=== PATIENT | female | born 1965 | race Caucasian/White ===

== ENCOUNTER → 2019-01-30 | Outpatient (CLI) | payer OTHER, SELFPAY ==
[2019-02-03 13:01] LABS: HPV Reflexed? NOT INDICATED
== END | disposition home or self-care (01) ==
LOC: LABSPEC 14:17
PROVIDERS: Visit Provider Obstetrics & Gynecology
DX: Z12.4 Encounter for screening for malignant neoplasm of cervix (principal)
CPT/HCPCS: 87624; 88175; G0145

== ENCOUNTER → 2020-01-16 06:09 | Outpatient (CLI) | payer OTHER, SELFPAY ==
[2020-01-16 07:56] LABS: Cholesterol 164 mg/dL (200); Glucose 87 mg/dL (74-106); High Density Lipoprotein 82 mg/dL; Triglycerides 75 mg/dL; Very Low Density Lipoprotein 15 mg/dL (5-40)
== END ==
PROVIDERS: PCP Internal Medicine; Referring Provider Internal Medicine; Visit Provider Internal Medicine
DX: Z00.00 Encounter for general adult medical examination without abnormal findings (principal); I10 Essential (primary) hypertension
CPT/HCPCS: 36415; 80061; 82947

== ENCOUNTER → 2020-11-19 15:40 | Outpatient (CLI) | payer OTHER, SELFPAY | PROVIDERS: PCP Internal Medicine; Visit Provider Obstetrics & Gynecology | DX: Z12.4 Encounter for screening for malignant neoplasm of cervix (principal) | CPT/HCPCS: 88175; G0145 ==

== ENCOUNTER → 2020-11-25 15:19 | Outpatient (CLI) | payer OTHER, SELFPAY ==
--- NOTE | 2020-11-25 15:25 | BI_ITS ---
MAMMOGRAPHY - BILATERAL SCREENING REASON FOR EXAM: Female, 55 years old. Routine annual screening examination. PERTINENT HISTORY: Non-contributory. TECHNIQUE: Digital bilateral breast tony (3D mammographic acquisition) in the CC and MLO projections. 2-D mediolateral oblique (MLO) and craniocaudad (CC) views of both breasts were obtained. CAD: Full Field Digital Mammography with Computer Added Detection was performed. COMPARISON: Comparison is made with prior study dated 02/18/2014. FINDINGS: Breast Composition: The breasts are heterogeneously dense, which may obscure small masses. There is a 1.3 cm x 1 cm nodular density in the superior retroareolar region of the right breast. Correlation with ultrasound is recommended. There is enlargement of the right axillary lymph nodes. No other significant abnormalities are identified. BI/SCRN MAMM (CAD)W/TONY BILAT IMPRESSION: 1.3 cm x 1 cm nodular density in the superior retroareolar region of the right breast. Correlation with ultrasound is recommended. There is enlargement of the right axillary lymph nodes as well. ASSESSMENT CATEGORY: BIRADS Category 0: Incomplete. Need additional imaging evaluation. A letter regarding these results will be sent to the patient by the facility within 30 days. Approximately 10% of breast cancers are not detected by mammography. A normal mammogram should not delay biopsy of a clinically suspicious abnormality. [id number] Electronically Signed: Quang Barker MD at 8:19 EDT , Service support ,
== END ==
PROVIDERS: PCP Internal Medicine; Referring Provider Obstetrics & Gynecology; Visit Provider Obstetrics & Gynecology
DX: Z12.31 Encounter for screening mammogram for malignant neoplasm of breast (principal)
CPT/HCPCS: 77063; 77067

== ENCOUNTER → 2020-11-27 07:47 | Outpatient (CLI) | payer OTHER, SELFPAY ==
--- NOTE | 2020-11-27 07:51 | US_ITS ---
STUDY: ULTRASOUND BREAST - RIGHT REASON FOR EXAM: Female, 55 years old. Abnormal screening mammogram. TECHNIQUE: Axial and longitudinal images of the RIGHT breast were performed with a high resolution ultrasound transducer. # OF IMAGES: 41 COMPARISON: Comparison is made with prior mammogram dated 11/25/2020. FINDINGS: RIGHT Breast: There is a 1 cm x 1 cm x 1 cm irregular shaped hypoechoic solid nodule at the 11 o''clock position of the breast at 2 cm from nipple. There is minimal posterior acoustical shadowing. A biopsy is recommended. Several enlarged lymph nodes are seen in the right axilla. The largest measures 1.6 cm x 2 cm x 1.4 cm. Biopsy recommended. US/Breast Limited Unilateral IMPRESSION: Enlarged lymph nodes. 1 cm x 1 cm x 1 cm hypoechoic irregular nodule at the 11 o''clock position of the breast 2 cm from nipple. A biopsy is recommended. ASSESSMENT CATEGORY: BIRADS Category 4: Suspicious - Biopsy Should Be Considered. A letter regarding these results will be sent to the patient by the facility within 30 days. Electronically Signed: Quang Barker MD at 8:43 EDT , Service support ,
== END ==
PROVIDERS: PCP Internal Medicine; Visit Provider Obstetrics & Gynecology
DX: N63.10 Unspecified lump in the right breast, unspecified quadrant (principal)
CPT/HCPCS: 76642

== ENCOUNTER → 2020-12-01 | Outpatient (CLI) | payer OTHER, SELFPAY ==
--- NOTE | 2020-12-01 | IMM_PTH ---
PATIENT: OLEG BAILON LOC: [facility] U#:[id number] AGE/SX: 55/F ROOM: RE12/01/[address]: Dr. Aleks Page MD : 1965 BED: DIS: 12/01/2020 SPEC #: [id number] RECD: 12/03/20 13:22 STATUS: JOSEPH REQ #: [id number] POLO: 12/01/20 00:[address]: Aleks Page DEPT: IMMUNOHISTOCHEMISTRY RECD BY: Ariana Craft ENTERED: 12/03/20 13:25 SP TYPE: IMMUNO OTHR DR: Dr. Osbaldo Newton MD Tissues: A - Right breast, NOS B - Axillary lymph node, NOS Procedures: CALPONIN-1 (add) CD31 (add) CK5-6 (add) CK8 (add) SONG-2 (add) E-CAD (add) HER2 VICENTE (add) KI-67 (add) MAMM (add) P53 (add) ID (add) FACTOR VIII (add) Pankeratin (add) GATA3 (add) P40 (add) ER (initial) PHYSICIAN & [place] [phone] SPECIMEN INFORMATION: Tissue Source: A ? Right breast, B ? Right axillary lymph node Clinical Info: Right breast mass, enlarged lymph node right axilla Specimen Number: [id number] A & B CPT code: 91250 x2, 26294 x11, 34319 x5 METHODOLOGY: Deparaffinized sections of prefer/formalin-fixed tissue or PAP/DQ stained slides are incubated with monoclonal/polyclonal antibodies/oligonucleotide probes. Localization is made via biotin free immunoperoxidase method. Appropriate controls are performed and reacted as expected. Results on target cell population are indicated in the following table: RESULTS: ANTIBODY / CLONE RESULT Block A P53 (DO-7) positive, 5% Ki-67 (30-9) positive, 40% CK8 (31zsofA26) positive CK5-6 (D5 & 1684) negative Calponin-1 (OG664V) negative P40 (BC28) negative E-Cad (ECH-6) positive SONG-2 (SP21) positive CD31 (ISAEL/70A) positive Factor VIII (R Ag) positive MORPHOMETRIC ANALYSIS ER (clone 6F11) negative ID (clone 16/1E2) negative Her-2Neu (clone CB11) positive (3+) Block B GATA3 (L50-823) positive Mammaglobin (31A5) negative AE1-3 (AE1/AE3/PCK26) positive ER (6F11) negative ID (1E2) negative The prognostic test for HER2 is performed on formalin-fixed paraffin embedded tissue. A 3+ (positive) staining pattern is defined as intense, homogeneous, complete, circumferential membranous staining in >10% of contiguous tumor cells. A similar weak (2+) staining pattern is interpreted as equivocal. DEBORAH follow-up testing is recommended for all equivocal cases. Positivity/negativity for ER/ID is reported if > or < 1% of the tumor cells are immuno- reactive, respectively. The ASCO/CAP criteria is used for scoring. Reference: Journal of Clinical Oncology, 2013; 31:9130-5113 & 2010; 16:4850-5602. Duration of fixation: 31.5 Hrs; Sample Adequate: Yes. These assays have not been validated on decalcified tissues. Results should be interpreted with caution given the likelihood of false negativity on decalcified specimens. These tests were developed and their performance characteristics determined by [facility]. They may not have been cleared or approved by the U.S. Food and Drug Administration. The FDA has determined that such clearance or approval is not necessary. The above immunohistochemical/dualISH markers are ordered and reviewed by the Pathologist. INTERPRETATION: A.Right breast, biopsy: Invasive ductal carcinoma, nuclear grade 2. Focal vascular invasion is present. B. Right axillary lymph node, biopsy: Metastatic carcinoma consistent with breast primary. AM:osmar 12/07/2020
[2020-12-01 14:43] VITALS: BMI 29.1
--- NOTE | 2020-12-01 14:55 | BRBX_PTH ---
PATIENT: OLEG BAILON LOC: [facility] U#:[id number] AGE/SX: 55/F ROOM: RE12/01/[address]: Dr. Aleks Page MD : 1965 BED: DIS: 12/01/2020 SPEC #: [id number] RECD: 12/01/20 16:14 STATUS: JOSEPH RE #: [id number] POLO: 12/01/20 14:[address]: Aleks Page DEPT: SURGICAL PATHOLOGY RECD BY: Lorenza Suazo ENTERED: 12/02/20 08:36 SP TYPE: BREAST BX OTHR DR: Dr. Osbaldo Newton MD Tissues: A - Breast, NOS B - LYMPH NODE BIOPSY Procedures: Surgery Specimen Level IV HEADER OPERATION: Right breast and axillary biopsy PRE-OP DIAGNOSIS: Right breast mass, enlarged lymph node right axilla TISSUE SUBMITTED: A - Right breast tissue, B - Right axillary lymph node FIXATION TIME: 31.5 hours MICROSCOPIC DIAGNOSIS A. Right breast, core biopsy: Invasive ductal carcinoma with the following characteristics: Maximal length - 7.5 millimeters Nuclear grade - 2/3 See comment. B. Right axillary lymph node, core biopsy: Metastatic carcinoma consistent with breast primary. See comment. AM:osmar 12/03/2020 COMMENT A. Immunohistochemistry ([id number]) supports the above diagnosis. Focal lymphatic invasion by carcinoma is present. B. Immunohistochemistry ([id number]) supports the above diagnosis. Case has been reviewed in consultation with Dr. Marie who concurs with the above diagnosis. IDC:SJ MICROSCOPIC DESCRIPTION Slides are reviewed. GROSS DESCRIPTION A - Received in fixative is one container labeled with the patient's name and designated right breast. The specimen consists of multiple elongated fragments of mejias-yellow fibroadipose tissue that in aggregate measure 1 x 0.6 x 0.2 cm. The entire specimen is submitted in one cassette. B - Received in fixative is one container labeled with the patient's name and designated right axilla. The specimen consists of multiple elongated fragments of mejias-yellow fibroadipose tissue that in aggregate measure 1.5 x 0.5 x 0.1 cm. The entire specimen is submitted in one cassette. / SJ:rg 12/02/20 TC:0 CPT: 64544 x2 ADDENDUM ADDENDUM ADDENDUM ADDENDUM 12/07/2020 12:37 ADDENDUM 06/02/2021 09:28 ADDENDUM 12/07/2020 12:37 ADDENDUM 12/07/2020 12:37 ADDENDUM 12/07/2020 12:37 ADDENDUM 12/07/2020 12:37 A. Focal vascular invasion is present. This addendum is added to incorporate an outside pathology consultation report. The case was examined at [facility] (#[id number]) and the following diagnosis was rendered. A. Right breast, core biopsy: Invasive ductal carcinoma, provisional [place] grade 2. B. Right axillary lymph node, core biopsy: Cores of lymph node tissue with metastatic carcinoma consistent with breast primary. Please see complete above mentioned consultation report in EMR
== END | disposition home or self-care (01) ==
LOC: LABSPEC 16:19
PROVIDERS: PCP Internal Medicine; Referring Provider Surgery; Visit Provider Surgery
DX: C50.911 Malignant neoplasm of unspecified site of right female breast (principal); C77.3 Secondary and unspecified malignant neoplasm of axilla and upper limb lymph nodes
CPT/HCPCS: 88305; 88341; 88342

== ENCOUNTER → 2020-12-11 12:51 | Outpatient (CLI) | payer OTHER, SELFPAY ==
[2020-12-08 15:33] VITALS: BMI 29.5
--- NOTE | 2020-12-11 12:56 | ECHODONC_ITS ---
Reason For Study: Other, Breast CA baseline echo Procedure This was a 2D Doppler, Color Flow transthoracic echocardiogram. Myocardial strain analysis was performed in this exam to aid in the assessment of cardiac function. Exam performed in department. Left Ventricle Normal LV size. Left ventricular systolic function is normal. The estimated ejection fraction is 65 %. The global longitudinal strain = -20 % (normal). Transmitral doppler flow suggestive of impaired relaxation of left ventricle. No regional wall motion abnormalities noted. Right Ventricle Normal RV size. Normal systolic function. Atria The left atrium is mildly enlarged. Normal right atrium. No doppler evidence for ASD. Bubble contrast study negative for right to left interatrial shunt. Mitral Valve There is no mitral annular calcification. Normal mitral valve. Mild (1+) mitral valve insufficiency. Tricuspid Valve Normal tricuspid valve. Mild tricuspid valve insufficiency. Right ventricular systolic pressure estimated to be 33 mmHg. Aortic Valve Trisinus/trileaflet aortic valve. Mild diffuse aortic valve thickening. Trivial aortic valve insufficiency. Pulmonic Valve The pulmonic valve is not well visualized. Trivial pulmonic valve insufficiency. Great Vessels Normal sized aortic root. Pericardium/Pleural No pericardial effusion. MMode/2D Measurements & Calculations LVIDd: 4.8 cm IVSd: 1.1 cm Ao root diam: 3.1 cm LVIDs: 3.1 cm LVPWd: 0.67 cm RVDd: 3.2 cm FS: 36.1 % LAV(MOD-bp): 62.5 ml LVAd ap4: 30.9 cm2 SV(MOD-sp4): 66.1 ml LAV(MOD-bp) Indexed: 33.0 ml/m2 LVLd ap4: 8.1 cm LAV(MOD-sp2): 70.2 ml EDV(MOD-sp4): 96.8 ml LAV(MOD-sp4): 54.4 ml EDV(sp4-el): 100.0 ml LVAs ap4: 15.5 cm2 LVLs ap4: 6.6 cm ESV(MOD-sp4): 30.7 ml ESV(sp4-el): 30.9 ml EF(MOD-sp4): 68.3 % EF(sp4-el): 69.1 % SV(sp4-el): 69.1 ml LA A4 area: 19.3 cm2 LA dimension(2D): 3.9 cm RA A4 area: 15.6 cm2 Doppler Measurements & Calculations MV E max bipin: 55.0 cm/sec Lat Peak E' Bipin: 7.1 cm/sec Med Peak E' Bipin: 5.4 cm/sec MV A max bipin: 81.4 cm/sec E/E' lat: 7.7 E/E' med: 10.3 MV E/A: 0.68 Ao V2 max: 143.7 cm/sec LV V1 max: 118.2 cm/sec PA V2 max: 74.2 cm/sec Ao max P.3 mmHg LV V1 max P.6 mmHg Ao V2 mean: 102.9 cm/sec Ao mean P.6 mmHg Ao V2 VTI: 31.8 cm TR max bipin: 272.3 cm/sec TR max P.7 mmHg ECHO/ONC Echo Complete Interpretation Summary Left ventricular systolic function is normal. The estimated ejection fraction is 65 %. The global longitudinal strain = -20 % (normal). The left atrium is mildly enlarged. Mild (1+) mitral valve insufficiency. Mild tricuspid valve insufficiency. Mild diffuse aortic valve thickening. Trivial aortic valve insufficiency. Trivial pulmonic valve insufficiency. Right ventricular systolic pressure estimated to be 33 mmHg. Transmitral doppler flow suggestive of impaired relaxation of left ventricle Bubble contrast study negative for right to left interatrial shunt. Ordering Physician: Katelin Hager Referring Physician: Osbaldo Newton Performed By: Ritika Blackwell RDCS, RVT
== END ==
PROVIDERS: PCP Internal Medicine; Referring Provider Internal Medicine Hematology & Oncology; Visit Provider Internal Medicine Hematology & Oncology
DX: Z01.818 Encounter for other preprocedural examination (principal); C50.411 Malignant neoplasm of upper-outer quadrant of right female breast; C77.9 Secondary and unspecified malignant neoplasm of lymph node, unspecified
CPT/HCPCS: 93306; 93356; A4216

== ENCOUNTER 2020-12-18 10:37 | Day surgery (SDC) | payer OTHER, SELFPAY ==
[2020-12-08 15:33] VITALS: BMI 29.5
[2020-12-18] VITALS (9 sets, daily range): BP systolic 130–154; BP diastolic 77–96; PULSE 54–78; RESP 16–18; TEMP 36.1–36.6; O2SAT 96–100; BMI 29.3
--- NOTE | 2020-12-18 07:34 | HP_ITS ---
Intake Vital Signs 12/01/20 Height 5 ft 5 in 12/01/20 Weight: 175 lb 12/01/20 BMI 29.1 12/01/20 BP 157/100 H 12/01/20 Blood Pressure Location Lt brachial 12/01/20 Position Sitting 12/01/20 Respiration 18 Intake Visit Reasons: BIRADS 4 RIGHT BREAST Chief Complaint: right breast and right axilla mass Dental Resident Required: No Is patient in pain?: No Allergies rizatriptan [From Maxalt] Allergy (Mild, Verified 12/01/20 14:44) PT UNSURE OF REACTION Medications doxazosin 2 mg tablet 2 mg PO DAILY 12/01/20 [History Confirmed 12/01/20] metoprolol succinate 50 mg tablet,extended release 24 hr 50 mg PO DAILY 12/01/20 [History Confirmed 12/01/20] PFSH Medical History (Updated 12/01/20 @ 14:42 by Candi Barclay) HTN (hypertension) (Chronic) Surgical History (Updated 12/01/20 @ 14:42 by Candi Barclay) S/P tube myringotomy (Acute) Status post hernia repair (Acute) Family History (Updated 12/01/20 @ 14:43 by Candi Barclay) Father Colon cancer Asthma Mother CAD (coronary artery disease) Hypertension Social History (Updated 12/01/20 @ 15:[address] Aleks Page MD) Smoking Status: Former smoker alcohol intake: current alcohol intake frequency: a few times a month HPI HPI HPI: OLEG BAILON, is a 55 F who presents to the office today for HPI HPI HPI: OLEG BAILON, is a 55 F who presents to the office today for right breast mass. The patient notes that she noted in the right axillary mass about 2 to 3 weeks ago when adjusting her bra. She then noticed a red area on her medial right breast and a lump in the superior right breast. Her last mammogram was in 2013. She had a mammogram and ultrasound which showed a BI-RADS lesion in the right breast as well as right axillary lymphadenopathy. Patient does not report any history of breast cancer in the family. She has not had any breast biopsies or breast cancer in her past. ROS General General: No weight change or fatigue Breast Breast: Yes right breast lump, abnormal mammogram and abnormal US; no nipple discharge or breast pain Musc Musculoskeletal: Yes back problems and arthritis Cardio Cardiovascular: No murmur, pacemaker, heart disease, atrial fibrillation, high blood pressure, heart attack, heart stent, palpitations, shortness of breat with exertion or chest pain Psych Psychiatric: Yes anxiety; no depression Resp Respiratory: No shortness of breath, No sleep apnea, No cough, No COPD, No asthma, No emphysema, No wheezing Gastro Gastrointestinal: No abdominal pain, No nausea or vomiting, No diarrhea, No constipation, No blood in stool, No acid reflux, No hemorrhoids, No ulcers, No gallbladder problem, No black,tarry stools Bipin Hematologic: No blood thinners Exam Const General: cooperative Orientation: alert, oriented x3 Chest Breast inspection: normal inspection of the breasts Breast Palpation: Yes axillary lymphadenopathy, Yes breast mass lrb: Right, No nipple discharge Resp Effort & Inspection: normal respiratory effort Auscultation: clear to auscultation bilaterally Cardio Rate: regular rate Rhythm: regular rhythm Heart Sounds: no murmurs GI Inspection: non-distended Palpation: soft, nontender Office Procedures Biopsy Provider Documentation The patient's right breast and axilla were prepped and draped in usual sterile fashion. Ultrasound was used to localize the enlarged right axillary lymph nodes as well as the right breast mass. A small area in the right axilla was injected with local anesthetic and a amara was made with a scalpel. Under ultrasound guidance several biopsies were performed of the largest right axillary lymph node. A clip was placed into the largest right axillary lymph node. Next an area of the lateral right breast was injected with local anesthetic and a small amara was made with a scalpel. Under ultrasound guidance several biopsies of the right breast mass were performed and a clip was placed into the right breast mass. Next both incisions were closed with Steri-Strips and bandages. Patient tolerated the procedure well. Alert Zeke Yes Biopsy Breast Biopsy: 50256 US Guidance Lymphnode Biopsy: [id number] Lymphnode Procedure Time Out Time Out Informed consent given: Yes Consent signed: Yes Time out checklist: patient, procedure, site marked/identified, positioning of patient, supplies available, allergies confirmed, team agrees on procedure Time out staff in room: Yes Time out verified: Yes Time out date: 12/01/20 Time out time: 15:22 Assessment & Plan Problems 1. Breast mass, right N63.10 2. Axillary lymphadenopathy R59.0 Plan The patient has a worrisome breast mass in the right breast with right axillary lymphadenopathy. After discussing the risks of bleeding and infection and obtaining informed consent the right breast mass and largest right axillary lymph node were both biopsied and clips were placed in each. Patient tolerated the procedure well and I will call her with results and discuss surgery after pathology results. Aleks Page MD Pager: [address], [address] [phone] Office: Orders Orders: Biopsy Today N63.10, R59.0 Coding Level of Care Code Attention Zeke Diagnoses Breast mass, right N63.10 Axillary lymphadenopathy R59.0 Additional Codes Biopsy - Breast Biopsy: 42387 US Guidance (89059) Biopsy - Lymphnode Biopsy: 53718 Lymphnode (04241) Since the patient's last visit the pathology did return as breast cancer of both the breast and the right axilla. I discussed this with her and with the oncologist and they are planning treatment with systemic therapy. I discussed port placement with the patient in detail. I discussed the risks including but not limited to bleeding, infection, pneumothorax, DVT or line infection. The patient understands the risks and I will place a left chest port today. Aleks Page MD Pager: [address], [address] [place] [phone] Office:
[2020-12-18] MEDS: Lactated Ringers 1,000 ML 100 ML IV (11:15)
[2020-12-18] MEDS: Cefazolin 2 GM in 0.9% Normal Saline 100 ML IV (12:25)
[2020-12-18] MEDS: Bupiv/Epi 0.25% 30 ML Vial (12:30)
--- NOTE | 2020-12-18 13:04 | OP.PCM_ITS ---
Problem List (1) Encounter for adjustment and management of vascular access device Status: Resolved Report of Operation Date of Procedure: 12/18/20 Pre-Operative Diagnosis: Right breast cancer need for vascular access for chemotherapy Post-Operative Diagnosis: Same Surgery/Procedure Performed:: Ultrasound fluoroscopy guided left chest port placement utilizing left IJ Description of Procedure: After obtaining informed consent patient was brought back to the operating room MAC anesthesia was induced and the left chest and neck were prepped in normal sterile fashion. Ultrasound was used to evaluate both IJs and the left IJ was selected. Next, using a needle, the left IJ was accessed and a guidewire was passed on into the superior vena cava under fluoroscopy guidance. A small inc ision was made over the puncture site and the dilator introducer was placed over the guidewire. Next this was capped and the pocket was made for the port. 1% lidocaine with epinephrine was injected in the proposed port site. An incision was made with scalpel. Electrocautery was used to make a pocket under the skin and subcutaneous tissue. Hemostasis was obtained. Next, the catheter was tunne led up to the neck incision site and placed through the introducer. The peel- away introducer was removed and the position of the catheter was confirmed on fluoroscopy. Next, the catheter was trimmed and attached to the port with the locking device. Interrupted 2-0 Vicryl sutures were used to anchor the port to the chest wall and then the port was placed inside the pocket. The pocket was then flushed with saline and the port irrigated with saline. There was good blood return and the port flushed easily. Next, heparin was injected into the port. The skin was closed with subcutaneous interrupted 3-0 Vicryl sutures. A single 3-0 Vicryl sutures placed under the skin at the neck incision site. Steri-Strips were placed as well as op sites. Patient tolerated procedure well, was taken to PACU in stable condition. Chest x-ray will be obtained. Grafts/Implants Used: 8 [place] [employer]Port - Admit VTE Documentation VTE Mechan Device Prophylaxis: SCD's
--- NOTE | 2020-12-18 13:06 | DCINST_ITS ---
Discharge Diet: No Restrictions - Pain medication may cause nausea. You should typically eat light foods as you take your pain medication. Discharge Activity: Return to Normal Activity, May Shower - with your bandage in place in 1-2 days after surgery. DO NOT SHOWER WHEN YOUR PORT IS ACCESSED. Call your doctor if your incision/area has: Continuous Slow Oozing, Sudden Increased Bleeding, Increased Pain/ Swelling, Increased Redness Call your doctor if you observe: Fever of 101 or Higher Remove Dressing in (days):: 3 - When you remove the bandage, leave the steri- strips intact until they fall off. Allergies/Adverse Reactions: Allergies rizatriptan [From Maxalt] Adverse Reaction (Mild, Verified 12/18/20 10:54) Rash ITCHY MUSCLE CRAMPS Medications to take at Discharge doxazosin 2 mg tablet 2 mg PO DAILY 12/01/20 metoprolol succinate 50 mg tablet,extended release 24 hr 50 mg PO DAILY 12/01/20 Lorazepam [Ativan] 0.5 mg PO DAILY PRN PRN 12/08/20 Calcium (Elemental) [Os-Jaciel 500] 500 mg PO DAILY@0800 12/14/20 Naproxen Sodium [Aleve] 220 mg PO DAILY 12/14/20 Primary Care Physician: Osbaldo Newton MD [Primary Care Provider] - Test Results: Test results from this visit will be discussed in further detail at your follow- up appointment, if applicable. Please Follow Up With: Aleks Page MD When: Follow-up after treatment for discussion of surgical options.
--- NOTE | 2020-12-18 13:10 | RAD_ITS ---
STUDY: X-RAY CHEST REASON FOR EXAM: Female, 55 years old. pacu -- in pacu TECHNIQUE: Port placement. COMPARISON: None. FINDINGS: A left-sided portacatheter has been placed. The tip is at the junction of the superior vena cava and ready. The lungs are clear and expanded. There is no demonstrated pleural abnormality. Normal size heart. Normal mediastinum and van. Normal visualized pulmonary arteries. There is atherosclerotic tortuosity of the aortic arch and descending thoracic aorta. Normal visualized thoracic spine. Normal visualized ribs, clavicles, and shoulders. There is no demonstrated abnormality of the visualized soft tissue structures of the upper abdomen. RAD/CXR for Line Placement IMPRESSION: Status post left portacatheter placement with the tip at the junction of the superior vena cava and right atrium. Electronically Signed: Quang Barker MD at 13:25 EDT , Service support ,
[2020-12-18] MEDS: Ibuprofen 200 MG Tablet 600 MG PO (14:03)
== END 2020-12-18 14:45 | disposition home or self-care (01) ==
LOC: SDC 10:37 → AC 10:48
PROVIDERS: PCP Internal Medicine; Referring Provider Surgery; Visit Provider Surgery
PROC: (CPT 36561; principal; 2020-12-18 11:45)
DX: Z45.2 Encounter for adjustment and management of vascular access device (principal); C50.911 Malignant neoplasm of unspecified site of right female breast; I10 Essential (primary) hypertension; F41.9 Anxiety disorder, unspecified; Z78.0 Asymptomatic menopausal state; Z79.899 Other long term (current) drug therapy; Z87.891 Personal history of nicotine dependence
CPT/HCPCS: 00532; 36561; 71045; 77001; 87426; J7120; C1788

== ENCOUNTER → 2020-12-31 09:51 | Outpatient (CLI) | payer OTHER, SELFPAY ==
[2020-12-18 11:02] VITALS: BMI 29.3
--- NOTE | 2020-12-31 09:53 | NM_ITS ---
CLINICAL: 55-year-old female with reported history of carcinoma of the breast. WHOLE BODY 99m Tc MDP RADIONUCLIDE BONE SCINTIGRAPHY COMPARISON: None available FINDINGS: Following the intravenous administration of 26.0 mCi of 99m Tc MDP, whole body bone images to the level of the distal tibial diaphyses bilaterally reveal: 1. Increased radiopharmaceutical concentration is identified in the right hip involving the femoral head-acetabular interface, mid cervical spine posteriorly on the right, the acromioclavicular compartments of both shoulders, elbows bilaterally, the left wrist, both hands, fourth lumbar vertebra posteriorly on the left, fifth lumbar vertebra posteriorly on the right, knees bilaterally. 2. The remaining skeletal structures are scintigraphically unremarkable with normal-appearing renal images and urinary bladder activity identified. NM/Bone Scan Whole Body IMPRESSION: 1. The increase in radiopharmaceutical concentration identified in the right hip, cervical spine, bilateral shoulders and elbows, left wrist, right and left hands, lower lumbar spine, both knee articulations is most consistent with degenerative arthritis. Correlation with plain film radiography may be of benefit in the region of the right hip secondary to the intensity of uptake. 2. There is no definitive typical scintigraphic evidence of diffuse axial skeletal metastatic disease on the current examination. Electronically Signed: Stephan Todd DO at 21:16 EDT Tel , Service support ,
== END ==
PROVIDERS: PCP Internal Medicine; Referring Provider Internal Medicine Hematology & Oncology; Visit Provider Internal Medicine Hematology & Oncology
DX: C50.411 Malignant neoplasm of upper-outer quadrant of right female breast (principal); C77.9 Secondary and unspecified malignant neoplasm of lymph node, unspecified
CPT/HCPCS: 78306; A9503; A4216

== ENCOUNTER → 2021-01-05 06:41 | Outpatient (CLI) | payer OTHER, SELFPAY ==
[2020-12-18 11:02] VITALS: BMI 29.3
--- NOTE | 2021-01-05 06:43 | CT_ITS ---
STUDY: CT CHEST WITH CONTRAST REASON FOR EXAM: Female, 55 years old. INITIAL STAGING FOR BREAST CANCER RADIATION DOSAGE (If Supplied By Facility): CTDIvol = ( 10.18 ) mGy, DLP = ( 384.58 ) mGycm TECHNIQUE: Transaxial imaging was performed following intravenous administration of IV 100mL Isovue-300. Multiplanar coronal and sagittal images were reformatted. Individualized dose optimization techniques were used for this CT. COMPARISON: None. FINDINGS: A left-sided portacatheter is seen with the tip in superior vena cava. There are multiple enlarged right axillary lymph nodes. The largest lymph node measures 2.5 cm x 1.5 cm. There is a 1.7 cm x 1.8 cm mass in the inferior deep aspect of the right breast. A tissue clip marker from prior biopsy is seen within it. There is evidence of overlying right breast skin thickening. The lungs are normal. There is no demonstrated pleural abnormality. Normal heart and pericardium. Normal mediastinum. Normal hilar regions. Normal enhanced pulmonary arteries. Normal aorta arch and descending thoracic aorta. There are multi-level degenerative changes of the thoracic spine. There is no demonstrated abnormality of the visualized upper abdomen. CT/Chest WITH Contrast IMPRESSION: There are multiple enlarged right axillary lymph nodes. 1.7 cm x 1.8 cm mass in the inferior deep aspect of the right breast. A tissue marker seen within. The lungs are clear. Electronically Signed: Quang Barker MD at 13:09 EDT , Service support ,
[2021-01-05] MEDS: 0.9% Saline Lock 10 ML Syringe IV (07:08)
== END ==
PROVIDERS: PCP Internal Medicine; Referring Provider Internal Medicine Hematology & Oncology; Visit Provider Internal Medicine Hematology & Oncology
DX: C50.411 Malignant neoplasm of upper-outer quadrant of right female breast (principal); C77.9 Secondary and unspecified malignant neoplasm of lymph node, unspecified
CPT/HCPCS: 71260; Q9967; A4216

== ENCOUNTER → 2021-01-06 15:18 | Outpatient (CLI) | payer OTHER, SELFPAY ==
[2020-12-18 11:02] VITALS: BMI 29.3
--- NOTE | 2021-01-06 15:25 | RAD_ITS ---
STUDY: X-RAY - PELVIS AND RIGHT HIP REASON FOR EXAM: Female, 55 years old. BREAST CANCER STAGING ABNORMAL BONE SCAN TECHNIQUE: 3 views of the pelvis and hip. COMPARISON: Nuclear medicine bone scan dated DECEMBER 31, 2020 FINDINGS: There is a non-specific bowel gas pattern. Normal visualized soft tissue structures. Normal bilateral iliac wings, sacroiliac joints and visualized sacrum. Normal bilateral superior and inferior pubic rami. Normal pubic symphysis. Normal bilateral ischial tuberosities. Normal visualized femoral head. Normal acetabulum. There is mild to moderate proximal narrowing of the right hip as well as subchondral cystic changes in the acetabular roof. Normal left hip. No visualized fracture. No lytic or blastic lesion is seen. RAD/HIP, UNI W/ Pelvis 2-3 Views IMPRESSION: Degenerative changes of the right hip Electronically Signed: Raad Voss MD at 16:17 EDT , Service support ,
== END ==
PROVIDERS: PCP Internal Medicine; Referring Provider Internal Medicine Hematology & Oncology; Visit Provider Internal Medicine Hematology & Oncology
DX: C50.411 Malignant neoplasm of upper-outer quadrant of right female breast (principal); C77.9 Secondary and unspecified malignant neoplasm of lymph node, unspecified
CPT/HCPCS: 73502

== ENCOUNTER → 2021-01-11 06:38 | Outpatient (CLI) | payer OTHER, SELFPAY ==
[2021-01-07 15:37] VITALS: BMI 29.1
--- NOTE | 2021-01-11 06:39 | CT_ITS ---
STUDY: CT ABDOMEN AND PELVIS WITH CONTRAST REASON FOR EXAM: Female, 55 years old. Known breast cancer, initial staging RADIATION DOSAGE (If Supplied By Facility): CTDIvol = ( 17.46 ) mGy, DLP = ( 904.72 ) mGycm TECHNIQUE: Transaxial images were obtained from the dome of the diaphragm to the symphysis pubis without oral contrast. IV 100mL Isovue-300 was administered. Sagittal and coronal images were reconstructed. Individualized dose optimization techniques were used for this CT. COMPARISON: None. FINDINGS: Lung bases show chronic interstitial changes, there is a 1.01 cm noncalcified suspicious nodule in the medial aspect of the left lower lobe on axial image 14. The visualized portions of the heart are within normal limits. Normal liver. Normal gallbladder and extrahepatic biliary system. Normal spleen. Normal pancreas. Normal bilateral adrenal glands. Normal right kidney. Normal left kidney. Normal visualized stomach. Multiple nondistended fluid-filled small bowel loops are noted consistent with ileus. Scattered colonic diverticulosis, no CT evidence of acute diverticulitis. The appendix is visualized and appears normal. Appendix best seen on coronal recon images 55 through 61 Normal abdominal aorta. Normal inferior vena cava. Normal retroperitoneum. Normal urinary bladder. Uterus is present, the endometrium cannot be accurately evaluated with CT. No suspicious cystic mass or free fluid in the pelvis. There is a small umbilical hernia containing fat. There are diffuse degenerative changes of the visualized lumbar spine, and pelvis. CT/Abdomen/Pelvis W IV Cont ONLY IMPRESSION: Concerning 1.01 cm noncalcified nodule in the medial aspect of the left lower lobe on axial image 14. Metastasis needs to be excluded. No suspicious solid organ abnormality No free intraperitoneal fluid, air, or suspicious adenopathy Small bowel ileus Normal appendix visualized Degenerative bony changes Electronically Signed: Abhilash Barnett MD at 7:46 EDT , Service support ,
== END ==
PROVIDERS: PCP Internal Medicine; Referring Provider Internal Medicine Hematology & Oncology; Visit Provider Internal Medicine Hematology & Oncology
DX: C50.411 Malignant neoplasm of upper-outer quadrant of right female breast (principal); C77.9 Secondary and unspecified malignant neoplasm of lymph node, unspecified; Z17.1 Estrogen receptor negative status [ER-]
CPT/HCPCS: 74177; Q9967; A4216

== ENCOUNTER → 2021-01-20 15:45 | Outpatient (CLI) | payer OTHER, SELFPAY ==
[2021-01-11 15:43] VITALS: BMI 29.0
--- NOTE | 2021-01-20 15:47 | MRI_ITS ---
STUDY: MRI BRAIN WITH AND WITHOUT CONTRAST REASON FOR EXAM: Female, 55 years old. DIFFICULTY WITH WORD FINDING TECHNIQUE: Standardized multiplanar fat and water weighted pulse sequences were obtained. dotarem 15ml IV was administered for the contrast portion of the examination. COMPARISON: None. FINDINGS: Normal size of the ventricles and extra-axial spaces for the patient''s age. Normal white matter tracts of the supratentorial brain. Normal bilateral basal ganglia. Normal thalami. There is no extra-axial fluid accumulation. There is no enhancing intra-axial or extra-axial abnormality. Normal sella turcica, pituitary gland, infundibular stalk, optic chiasm and hypothalamus. Normal tectal plate and pineal gland. Normal midbrain, maulik and medulla. Normal cerebellum. MRI/Brain W/WO Contrast IMPRESSION: Normal unenhanced and enhanced MRI of the brain. Electronically Signed: Rick Chen MD at 15:53 EDT Tel , Service support ,
[2021-01-20] MEDS: 0.9% Saline Lock 10 ML Syringe IV (17:10)
[2021-01-20] MEDS: 0.9 % NaCl (Sterile) Posiflush 10 mL IV (17:10)
== END ==
PROVIDERS: PCP Internal Medicine; Referring Provider Internal Medicine Hematology & Oncology; Visit Provider Internal Medicine Hematology & Oncology
DX: C50.411 Malignant neoplasm of upper-outer quadrant of right female breast (principal); Z17.1 Estrogen receptor negative status [ER-]; C77.9 Secondary and unspecified malignant neoplasm of lymph node, unspecified
CPT/HCPCS: 70553; A9575; A4216

== ENCOUNTER 2021-02-16 15:41 | Emergency (ER) | payer OTHER, SELFPAY ==
[2021-02-04 16:02] VITALS: BMI 29.1
[2021-02-16 15:42] VITALS: BP 124/86; PULSE 77; RESP 16; TEMP 37.2; O2SAT 97; BMI 29.0
[2021-02-16 15:46] VITALS: BP 124/86; PULSE 81; RESP 16; TEMP 37.2; O2SAT 96
--- NOTE | 2021-02-16 16:05 | VDLE_ITS ---
Reason For Study: Pain Procedure LEFT This is a venous duplex using B-mode, color GSV is normal. flow and spectral Doppler. CFV is compressible, spontaneous, phasic, Exam performed portable in ED. competent, and demonstrates normal A preliminary report was called and/or faxed augmentation. to [facility]. FV is compressible, spontaneous, phasic, competent and demonstrates normal augmentation. POP V is compressible, spontaneous, phasic, competent and demonstrates normal augmentation. T/P Trunk is compressible. PTV is compressible. LT PerV is compressible. VL/Venous Duplex US, Unilateral Interpretation Summary There is no evidence of left lower extremity deep vein thrombosis. Left great s aphenous vein appears patent and compressible segmentally. Ordering Physician: Bebeto Ybarra Referring Physician: Osbaldo Newton Performed By: Zahida Collado RVT and Student
--- NOTE | 2021-02-16 16:05 | EX.ED.DYSGE1 ---
HPI History of Present Illness Chief Complaint: Lower Extremity Injury Narrative Narrative: 55-year-old female presents with concern for left lower extremity pain and swelling. States that she is currently on chemotherapy for breast cancer. States that she developed this over the past 4 to 5 days. States it is in her ankle in her calf. Aching in nature. Worse with movement. Denies any chest pain or shortness of breath. Spoke with her oncologist who wanted her to come to the emergency department to rule out DVT. Denies any fever, chills, trauma. 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 Breast cancer CINV (chemotherapy-induced nausea and vomiting) Difficulty with speech HTN (hypertension) Left lower lobe pulmonary nodule Port-A-Cath in place Home Medications doxazosin 2 mg tablet 2 mg PO DAILY 12/01/20 [History Last Taken Unknown] metoprolol succinate 50 mg tablet,extended release 24 hr 50 mg PO DAILY 12/01/20 [History Last Taken 12/18/20 05:00] lorazepam 0.5 mg PO DAILY PRN PRN 12/08/20 [History Last Taken Unknown] calcium carbonate 500 mg PO DAILY@0800 12/14/20 [History Last Taken Unknown] naproxen sodium 220 mg PO DAILY 12/14/20 [History Last Taken Unknown] lidocaine-prilocaine 2.5 %-2.5 % topical cream 1 applic TOPICAL ONCE PRN 30 Days #30 g 12/31/20 [Rx Last Taken Unknown] dexamethasone 4 mg tablet 8 mg PO DAILY #6 tab 01/27/21 [Rx Last Taken Unknown] ondansetron 8 mg disintegrating tablet 8 mg PO Q8H PRN #30 tab 01/27/21 [Rx Last Taken Unknown] prochlorperazine maleate 10 mg tablet 10 mg PO Q6H PRN #30 tab 01/27/21 [Rx Last Taken Unknown] Allergy/AdvReac Type Severity Reaction Status Date / Time triamterene Allergy Rash Verified 02/16/21 15:49 Family History Father Colon cancer Asthma CAD (coronary artery disease) Mother Hypertension Surgical History S/P tube myringotomy Status post hernia repair Social History Smoking Status: Former smoker Tobacco: How many years used: 26 second hand exposure: Yes alcohol intake: current alcohol intake frequency: a few times a month details: BEER substance use type: does not use caffeine: Yes Type: coffee Number of servings: 4 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: [employer] seatbelt use: always do you feel safe at home: Yes ROS ROS ED Constitutional Constitutional ED: Denies chills, fever(s) or sweats Eyes Eyes: Denies blurry vision, change in vision or diplopia ENT ENT ED: Denies rhinorrhea or sore throat Cardiovascular Cardiovascular: Denies chest pain, orthopnea, palpitations or racing heartbeat Respiratory/Chest Respiratory/Chest: Denies cough, dyspnea, dyspnea on exertion, orthopnea or sputum Gastrointestinal Gastrointestinal: Denies abdominal pain, constipation, diarrhea, melena, nausea or vomiting Genitourinary Genitourinary ED: Denies dysuria, hematuria or urinary frequency Musculoskeletal Musculoskeletal: Reports arthralgias and myalgias; Denies neck pain Integumentary Denies rash Neurologic Neurologic: Denies headache(s), paresthesias or weakness Psychiatric Psychiatric: Denies anxiety or depression Hematologic/Lymphatic Hematologic/Lymphatic: Denies easy bleeding or easy bruising Allergic/Immunologic Allergic/Immunologic ED: Denies mouth swelling or tongue swelling EXAM Physical Exam Const Vital Signs: 02/16/21 15:42 02/16/21 15:46 Temperature 99.0 F 99.0 F Temperature Source Temporal Temporal Pulse Rate 77 81 Respiratory Rate 16 16 Blood Pressure 124/86 H 124/86 H Blood Pressure Mean 98 98 Pulse Ox 97 96 Oxygen Delivery Method Room Air Room Air Positive well nourished and well developed General Appearance ED: well developed HEENT Reports TM's clear and moist mucous membranes normocephalic and atraumatic Tympanic Membrane ED: Yes TM's clear Eyes PERRL and EOMs intact bilaterally Neck no lymphadenopathy, supple and no JVD Chest Wall inspection of chest normal Resp normal respiratory effort and clear to auscultation bilaterally Cardio regular rate, S1 normal heart sound, S2 normal heart sound and no murmurs Peripheral Pulses: pulses 2+ throughout GI soft to palpation, non-tender and non-distended Back/Spine no CVA tenderness and no thoracic nor lumbar tenderness Extremity normal to inspection Extremity Narrative: Tenderness to palpation of the left ankle and calf. Strong palpable pulses. Sensation intact. Full range of motion. General Extremety ED: Negative for edema General Extremity: Negative for edema Neuro oriented x3, CN's II-XII intact bilaterally and no sensory deficits noted Sensorium / Orientation: alert Motor Exam: strength 5/5 throughout Psych mental status grossly normal Skin no rashes or lesions noted MDM MDM MDM Narrative Medical decision making narrative: Patient appears well nontoxic. Vital signs within normal limits. No trauma indicating x-ray. Ultrasound shows no DVT. Patient will be advised on compression, elevation, ice, Tylenol 3 times a day for the next 5 days and follow-up with her oncologist. Patient agreeable and discharged home in stable condition. Discharge Plan Triage Chief Complaint: Lower Extremity Injury ED Provider: Bebeto Ybarra Dx/Rx/DC Orders Clinical Impression: Acute pain of left lower extremity Instructions: ED Myalgias Prescriptions: No Action metoprolol succinate 50 mg tablet extended release 24 hr 50 mg PO DAILY RF: 0 doxazosin 2 mg tablet 2 mg PO DAILY RF: 0 ondansetron 8 mg tablet,disintegrating 8 mg PO Q8H PRN (Reason: nausea and vomiting) Qty: 30 RF: 3 prochlorperazine maleate 10 mg tablet 10 mg PO Q6H PRN (Reason: nausea and vomiting) Qty: 30 RF: 2 dexamethasone 4 mg tablet 8 mg PO DAILY Qty: 6 RF: 3 lorazepam 0.5 MG tablet 0.5 mg PO DAILY PRN PRN (Reason: Anxiety) RF: 0 calcium carbonate 500 MG tablet 500 mg PO DAILY@0800 RF: 0 naproxen sodium 220 MG tablet 220 mg PO DAILY RF: 0 lidocaine-prilocaine 2.5-2.5 % cream 1 applic topical ONCE PRN (Reason: port access) 30 Days Qty: 30 RF: 2 Primary Care Provider: Osbaldo Newton Referrals: Osbaldo Newton MD [Primary Care Provider] - As Needed Disposition Disposition: Home, Self Care
== END 2021-02-16 16:49 | disposition home or self-care (01) ==
LOC: ED 16:40
PROVIDERS: Emergency Provider Emergency Medicine; PCP Internal Medicine
DX: M79.605 Pain in left leg (principal); M79.89 Other specified soft tissue disorders; I10 Essential (primary) hypertension; C50.919 Malignant neoplasm of unspecified site of unspecified female breast; K21.9 Gastro-esophageal reflux disease without esophagitis; Z79.899 Other long term (current) drug therapy; Z87.891 Personal history of nicotine dependence
CPT/HCPCS: 93971; 99282

== ENCOUNTER → 2021-03-18 06:14 | Outpatient (CLI) | payer OTHER, SELFPAY ==
[2021-02-16 15:42] VITALS: BMI 29.0
[2021-03-18 07:46] LABS: Cholesterol 134 mg/dL (200); Glucose 95 mg/dL (74-106); High Density Lipoprotein 54 mg/dL; Triglycerides 75 mg/dL; Very Low Density Lipoprotein 15 mg/dL (5-40)
== END ==
PROVIDERS: PCP Internal Medicine; Referring Provider Internal Medicine; Visit Provider Internal Medicine
DX: Z00.00 Encounter for general adult medical examination without abnormal findings (principal)
CPT/HCPCS: 36415; 80061; 82947

== ENCOUNTER 2021-09-27 06:16 | Outpatient (CLI) | payer OTHER, SELFPAY ==
[2021-09-27 07:33] LABS: Cholesterol 161 mg/dL (200); Glucose 94 mg/dL (74-106); High Density Lipoprotein 77 mg/dL; Triglycerides 103 mg/dL; Very Low Density Lipoprotein 21 mg/dL (5-40)
== END 2021-09-27 23:59 | disposition short-term general hospital (02) ==
LOC: LAB 06:18
PROVIDERS: PCP Internal Medicine; Referring Provider Internal Medicine; Visit Provider Internal Medicine
DX: Z00.00 Encounter for general adult medical examination without abnormal findings (principal)
CPT/HCPCS: 36415; 80061; 82947

== ENCOUNTER 2021-10-19 15:50 | Outpatient (CLI) | payer OTHER, SELFPAY ==
--- NOTE | 2021-10-19 15:57 | RAD_ITS ---
STUDY: X-RAY - LUMBAR SPINE REASON FOR EXAM: Female, 56 years old. ACUTE [place] LOW BACK PAIN TECHNIQUE: 3 view(s) of the lumbar spine were obtained. COMPARISON: None FINDINGS: Normal lumbar lordosis. There is no substantial scoliosis. There is a normal alignment of the vertebrae. There is multilevel endplate spondylosis of the lumbar vertebrae. Normal disc space heights. The soft tissue structures are unremarkable. RAD/Lumbar Spine 2 or 3 Views IMPRESSION: Degenerative change. No visualized acute fracture. Electronically Signed: Josey Randhawa MD at 2:54 EST Reading Location ID and State: [facility] / [place] Tel , Service support ,
== END 2021-10-19 23:59 | disposition home or self-care (01) ==
PROVIDERS: PCP Internal Medicine; Referring Provider Internal Medicine; Visit Provider Internal Medicine
DX: M54.42 Lumbago with sciatica, left side (principal)
CPT/HCPCS: 72100

== ENCOUNTER 2021-11-16 15:45 | Outpatient (CLI) | payer OTHER, SELFPAY ==
--- NOTE | 2021-11-16 15:51 | RAD_ITS ---
STUDY: AP PELVIS AND RIGHT HIP X-RAY SERIES (3 VIEWS) 1459 HOURS ON 11/16/2021 REASON FOR EXAM: 56-year-old female with right hip pain. TECHNIQUE: 3 views of the pelvis and hip. COMPARISON: 01/06/2021 FINDINGS: There is marked narrowing of the superior right hip joint with mild sclerotic changes of the adjacent acetabulum. The degree of narrowing has increased since the previous study of 01/06/2021. There is no evidence of fractures or dislocations. No osseous lytic, sclerotic or mass lesions are evident. A phlebolith is noted in the soft tissues of the upper right buttocks. RAD/HIP, UNI W/ Pelvis 2-3 Views IMPRESSION: 1. Marked narrowing of the superior right hip joint with mild sclerotic changes of the acetabulum with the degree of narrowing and sclerosis increased since the previous study of 01/06/2021. 2. No fractures or dislocations. 3. No other significant abnormalities. Electronically Signed: Jose Francisco Peterson MD at 20:33 EDT ,
== END 2021-11-16 23:59 | disposition home or self-care (01) ==
LOC: RAD 15:47
PROVIDERS: PCP Internal Medicine; Referring Provider Internal Medicine; Visit Provider Internal Medicine
DX: M25.551 Pain in right hip (principal)
CPT/HCPCS: 73502

== ENCOUNTER → 2022-03-11 | Outpatient (CLI) | payer OTHER, SELFPAY ==
[2022-03-11 07:59] LABS: Cholesterol 159 mg/dL (200); Glucose 87 mg/dL (74-106); High Density Lipoprotein 77 mg/dL; Triglycerides 61 mg/dL; Very Low Density Lipoprotein 12 mg/dL (5-40)
== END | disposition home or self-care (01) ==
LOC: LAB 06:20
PROVIDERS: PCP Internal Medicine; Referring Provider Internal Medicine; Visit Provider Internal Medicine
DX: Z00.00 Encounter for general adult medical examination without abnormal findings (principal)
CPT/HCPCS: 36415; 80061; 82947

== ENCOUNTER → 2023-08-07 | Outpatient (CLI) | payer OTHER, SELFPAY ==
[2023-08-07 07:31] LABS: Cholesterol 175 mg/dL (200); Glucose 103 mg/dL (74-106); High Density Lipoprotein 82 mg/dL; Triglycerides 62 mg/dL; Very Low Density Lipoprotein 12 mg/dL (5-40)
== END | disposition home or self-care (01) ==
LOC: LAB 06:03
PROVIDERS: PCP Internal Medicine; Referring Provider Internal Medicine; Visit Provider Internal Medicine
DX: I10 Essential (primary) hypertension (principal)
CPT/HCPCS: 36415; 80061; 82947

== ENCOUNTER → 2024-02-05 | Outpatient (CLI) | payer OTHER, SELFPAY ==
[2024-02-05 07:10] LABS: Hematocrit 42.5 % (37-47); Hemoglobin 14.4 g/dL (12.0-15.0); Mean Corp Hgb Conc 33.9 g/dL (32-36); Mean Corpuscular Hgb 31.1 pg (27.0-32.0); Mean Corpuscular Volume 91.8 fL (81-99); Mean Platelet Vol. 8.9 fl (6.2-12.0); Platelet Count 268 K/mm3 (150-450); RBC Distribution Width CV 12.1 % (11.6-14.6); RBC Distribution Width SD 40.6 fl (35.1-43.9); Red Blood Count 4.63 M/mm3 (4.2-5.4); White Blood Count 5.3 K/mm3 (4.4-11.0)
[2024-02-05 07:27] LABS: ALB/GLOB Ratio 1.1 RATIO (0.9-2.4); AST(SGOT) 17 U/L (15-37); Alanine Aminotransfer ALT/SGPT 20 U/L (13-56); Albumin, Serum 3.7 g/dL (3.2-5.0); Alkaline Phosphatase 51 U/L (45-117); Anion Gap 3 (5-15); BUN 9 mg/dL (7-18); BUN/Creat Ratio 11.3 RATIO (10-20); Chloride 102 mmol/L (98-107); Cholesterol 177 mg/dL (200); EST Glomerular Filtration Rate 78 mL/min (>60); Est Glom Filt Rate - Afr Amer 94 mL/min (>60); Globulin 3.3 g/dL (2.2-4.2); Glucose 88 mg/dL (74-106); High Density Lipoprotein 91 mg/dL; Potassium 4.1 mmol/L (3.5-5.1); Sodium Level 133 mmol/L (136-145); Triglycerides 64 mg/dL; Very Low Density Lipoprotein 13 mg/dL (5-40)
== END | disposition home or self-care (01) ==
PROVIDERS: PCP Internal Medicine
DX: Z00.00 Encounter for general adult medical examination without abnormal findings (principal)
CPT/HCPCS: 36415; 80053; 80061; 85027

== ENCOUNTER → 2024-08-07 | Outpatient (CLI) | payer OTHER, SELFPAY ==
[2024-08-07 07:21] LABS: Cholesterol 164 mg/dL (200); Glucose 98 mg/dL (74-106); High Density Lipoprotein 83 mg/dL; Triglycerides 69 mg/dL; Very Low Density Lipoprotein 14 mg/dL (5-40)
== END | disposition home or self-care (01) ==
LOC: LAB 06:12
PROVIDERS: PCP Internal Medicine; Referring Provider Internal Medicine; Visit Provider Internal Medicine
DX: I10 Essential (primary) hypertension (principal)
CPT/HCPCS: 36415; 80061; 82947

== ENCOUNTER → 2025-02-05 | Outpatient (CLI) | payer OTHER, SELFPAY ==
[2025-02-05 06:31] LABS: Absolute Lymphocyte Count 1.56 X10^3/uL (0.83-4.51); Absolute Neutrophil Count 3.7 X10^3/uL (2.0-7.7); Basophil# 0.06 X10^3/uL; Eosinophils% 3.2 % (0-5); Hematocrit 42.1 % (37-47); Hemoglobin 14.3 g/dL (12.0-15.0); Lymphocyte # 1.56 X10^3/ul (0.83-4.51); Lymphocyte % 25.2 % (19-41); Mean Corpuscular Volume 91.3 fL (81-99); Mean Platelet Vol. 8.8 fl (6.2-12.0); Monocyte# 0.67 X10^3/uL; Monocyte% 10.8 % (0-10); NRBC Flagged by Analyzer 0 % (0-5); Neutrophil # 3.67 X10^3/uL (2.7-7.7); Neutrophil % 59.3 % (47-70); Platelet Count 286 K/mm3 (150-450); RBC Distribution Width CV 11.9 % (11.6-14.6); RBC Distribution Width SD 39.7 fl (35.1-43.9); Red Blood Count 4.61 M/mm3 (4.2-5.4); White Blood Count 6.2 K/mm3 (4.4-11.0)
[2025-02-05 07:09] LABS: ALB/GLOB Ratio 1.7 RATIO (0.9-2.4); AST(SGOT) 20 U/L (<=31); Alanine Aminotransfer ALT/SGPT 15 U/L (<=34); Albumin, Serum 4.3 g/dL (3.4-4.8); Alkaline Phosphatase 51 U/L (35-104); Anion Gap 11 (5-15); BUN 11 mg/dL (4-19); BUN/Creat Ratio 14.7 RATIO (10-20); Calcium,Total 9.5 mg/dL (7.6-11.0); Carbon Dioxide 24.2 mmol/L (21.0-32.0); Chloride 101 mmol/L (98-108); Creatinine, Serum 0.75 mg/dL (0.70-1.20); EST Glomerular Filtration Rate 91 (>60); Globulin 2.6 g/dL (2.2-4.2); Glucose 100 mg/dL (70-99); Potassium 4.4 mmol/L (3.3-5.1); Sodium Level 136 mmol/L (133-145); Total Bilirubin 0.44 mg/dL (0.00-1.30)
[2025-02-05 07:49] LABS: Cholesterol 182 mg/dL (<=200); High Density Lipoprotein 90 mg/dL; Low Density Lipoprotein Calc. 80 mg/dL; Triglycerides 57 mg/dL; Very Low Density Lipoprotein 11 mg/dL (5-40); cholesterol:hdl ratio screen 2.02
== END | disposition home or self-care (01) ==
LOC: LAB 06:13
PROVIDERS: PCP Internal Medicine; Referring Provider Internal Medicine; Visit Provider Internal Medicine
DX: I10 Essential (primary) hypertension (principal)
CPT/HCPCS: 36415; 80053; 80061; 84443; 85025

== ENCOUNTER → 2025-08-04 | Outpatient (CLI) | payer OTHER, SELFPAY ==
[2025-08-04 07:02] LABS: Glucose 107 mg/dL (70-99)
[2025-08-04 07:25] LABS: Cholesterol 181 mg/dL (<=200); Low Density Lipoprotein Calc. 78 mg/dL; Triglycerides 55 mg/dL; Very Low Density Lipoprotein 11 mg/dL (5-40); cholesterol:hdl ratio screen 1.97
== END | disposition home or self-care (01) ==
LOC: LAB 06:12
PROVIDERS: PCP Internal Medicine; Referring Provider Internal Medicine; Visit Provider Internal Medicine
DX: Z00.00 Encounter for general adult medical examination without abnormal findings (principal)
CPT/HCPCS: 36415; 80061; 82947